=== PATIENT | male | born 1980 | race Caucasian/White ===

== ENCOUNTER 2022-01-23 02:25 | Day surgery (SDC) | payer OTHER ==
[2022-01-23] MEDS ORDERED: SODIUM CHLORIDE 0.9% 1,000 ML IV STA (02:46)
[2022-01-23] MEDS ORDERED: MORPHINE 2 MG/ML CARPUJECT IVP STA ×2 (02:46→06:09)
[2022-01-23] MEDS ORDERED: ONDANSETRON 4 MG/2 ML VIAL IVP STA (02:46)
[2022-01-23 02:59] LABS: BASOPHILS % (AUTO) 0.3 %; EOSINOPHILS # (AUTO) 0.1 10^3/uL (0.0-0.7); EOSINOPHILS % (AUTO) 0.5 %; HCT - HEMATOCRIT 45.2 % (42.0-52.0); HGB - HEMOGLOBIN 15.6 g/dL (14.0-18.0); LYMPHOCYTES # (AUTO) 1.2 10^3/uL (1.5-3.5); LYMPHOCYTES % (AUTO) 11.3 %; MEAN CORPUSCULAR HEMOGLOBIN 28.8 pg (27.0-31.0); MEAN CORPUSCULAR HGB CONC 34.5 g/dL (32.0-36.0); MEAN CORPUSCULAR VOLUME 83.5 fL (80.0-94.0); MEAN PLATELET VOLUME 8.9 fL (7.4-11.4); MONOCYTES # (AUTO) 0.7 10^3/uL (0.0-1.0); NEUTROPHILS % (AUTO) 81.7 %; PLT - PLATELET COUNT 198 10^3/uL (130-450); RED BLOOD COUNT 5.41 10^6/uL (4.70-6.10); RED CELL DISTRIBUTION WIDTH 12.6 % (12.0-15.0)
[2022-01-23] MEDS ORDERED: IOPAMIDOL-300 100 ML VIAL ONE (02:59)
[2022-01-23 03:02] LABS: BILIRUBIN,URINE NEGATIVE (NEGATIVE); CLARITY,URINE CLEAR (CLEAR); GLUCOSE, URINE (UA) NEGATIVE (NEGATIVE); KETONES,URINE (UA) 15 mg/dL (NEGATIVE); LEUKOCYTE ESTERASE, URINE NEGATIVE (NEGATIVE); NITRITE,URINE NEGATIVE (NEGATIVE); OCCULT BLOOD,URINE NEGATIVE (NEGATIVE); PH,URINE 5.5 PH (5.0-7.5); PROTEIN,URINE NEGATIVE (NEGATIVE); UROBILINOGEN,URINE 0.2 (NORMAL) E.U./dL (NORMAL)
[2022-01-23 03:10] LABS: ALBUMIN 4.6 g/dL (3.2-5.5); ALBUMIN/GLOBULIN RATIO 1.3 (1.0-2.2); BILIRUBIN,TOTAL 0.7 mg/dL (0.2-1.0); CALCIUM 9.3 mg/dL (8.5-10.3); CREATININE 1.1 mg/dL (0.6-1.2); TOTAL PROTEIN 8.2 g/dL (6.7-8.2)
[2022-01-23] MEDS ORDERED: IOPAMIDOL-300 100 ML VIAL IVP ONE (03:35)
--- NOTE | 2022-01-23 03:38 | ED Physician Documentation ---
PD HPI ABD PAIN - Stated complaint Stated Complaint: ABD PX - Chief complaint Chief Complaint: Abd Pain - History obtained from History obtained from: Patient - Additional information Additional information: Patient is a 41-year-old male with generalized abdominal pain since 7 or 8 PM. The pain is sharp and throbbing. It has been constant. Nothing makes it better or worse. He has associated nausea. He denies fever, chest pain, difficulty breathing, vomiting, dysuria, hematuria, diarrhea. He denies eating anything abnormal today at that would have triggered his symptoms. He denies any known sick contacts. He denies a previous history of similar symptoms. Denies history of abdominal surgeries. Review of Systems Constitutional: denies: Fever Nose: denies: Congestion Cardiac: denies: Chest pain / pressure, Palpitations Respiratory: denies: Dyspnea, Cough GI: reports: Abdominal Pain, Nausea. denies: Vomiting, Diarrhea : denies: Dysuria, Hematuria Skin: denies: Rash Musculoskeletal: denies: Back pain Neurologic: denies: Headache PD PAST MEDICAL HISTORY - Past Medical History Past Medical History: Yes Musculoskeletal: Gout - Past Surgical History Past Surgical History: Yes Ortho: ACL reconstruction, Other HEENT: Rhinoplasty - Present Medications Home Medications: Ambulatory Orders Medication Instructions Recorded Confirmed Ondansetron Odt [Zofran Odt] 4 mg TL Q6H PRN #10 tablet 01/23/22 allopurinoL [Zyloprim] 200 mg PO DAILY 01/23/22 01/23/22 levoFLOXacin [Levaquin] 500 mg PO QDDINNER #2 tablet 01/23/22 oxyCODONE [Roxicodone] 5 mg PO Q4-6H PRN #7 tablet 01/23/22 - Allergies Allergies/Adverse Reactions: Allergies Allergy/AdvReac Type Severity Reaction Status Date / Time No Known Drug Allergies Allergy Verified 01/23/22 02:35 - Social History Does the pt smoke?: No Smoking Status: Never smoker Does the pt drink ETOH?: Yes Does the pt have substance abuse?: No - Immunizations Immunizations are current?: Yes PD ED PE NORMAL - General General: Alert and oriented X 3, No acute distress, Well developed/nourished - HEENT HEENT: Atraumatic, Moist mucous membranes - Neck Neck: Supple, no meningeal sign - Cardiac Cardiac: RRR, No murmur, Strong equal pulses - Respiratory Respiratory: No respiratory distress, Clear bilaterally - Abdomen Abdomen: Normal bowel sounds, Soft, Non distended, Other (Right lower quadrant tenderness to palpation, no rebound, Mild guarding) - Back Back: No: No CVA TTP - Derm Derm: Normal color, No rash - Extremities Extremities: No deformity, No edema - Neuro Neuro: Alert and oriented X 3, No motor deficit, Normal speech - Psych Psych: Normal mood, Normal affect Results - Vitals Vitals: Vital Signs - 24 hr 01/23/22 01/23/22 01/23/22 02:29 05:00 07:00 Temperature 36.3 C L Heart Rate 68 55 L 59 L Respiratory 18 13 13 Rate Blood Pressure 170/80 H 128/76 115/78 O2 Saturation 100 96 96 01/23/22 01/23/22 01/23/22 09:07 12:07 12:10 Temperature 36.8 C 36.5 C 36.5 C Heart Rate 57 L 67 69 Respiratory 12 12 12 Rate Blood Pressure 136/86 H 136/72 H 127/80 O2 Saturation 97 100 97 01/23/22 01/23/22 01/23/22 12:15 12:20 12:25 Temperature 36.5 C 36.5 C 36.5 C Heart Rate 68 78 75 Respiratory 12 15 15 Rate Blood Pressure 139/73 H 156/88 H 144/88 H O2 Saturation 100 96 99 01/23/22 01/23/22 01/23/22 12:30 12:35 12:40 Temperature 36.5 C 36.5 C 36.5 C Heart Rate 67 66 64 Respiratory 17 15 15 Rate Blood Pressure 148/87 H 153/85 H 149/92 H O2 Saturation 97 97 97 01/23/22 01/23/22 01/23/22 12:45 12:50 12:55 Temperature 36.5 C 36.5 C 36.5 C Heart Rate 63 64 63 Respiratory 15 17 14 Rate Blood Pressure 149/91 H 141/85 H 144/92 H O2 Saturation 97 97 97 01/23/22 01/23/22 01/23/22 13:00 13:02 13:19 Temperature 36.8 C 36.8 C 37.2 C Heart Rate 72 72 64 Respiratory 18 18 14 Rate Blood Pressure 142/88 H 142/88 H 137/72 H O2 Saturation 94 94 94 01/23/22 13:53 Temperature 37.4 C Heart Rate 69 Respiratory 18 Rate Blood Pressure 136/75 H O2 Saturation 98 Oxygen O2 Source Room air - Labs Labs: Laboratory Tests 01/23/22 01/23/22 01/23/22 02:50 02:50 02:50 WBC 11.0 H RBC 5.41 Hgb 15.6 Hct 45.2 MCV 83.5 MCH 28.8 MCHC 34.5 RDW 12.6 Plt Count 198 MPV 8.9 Neut # (Auto) 9.0 H Lymph # (Auto) 1.2 L [place] # (Auto) 0.7 Eos # (Auto) 0.1 Baso # (Auto) 0.0 Absolute Nucleated RBC 0.00 Nucleated RBC % 0.0 Sodium 135 Potassium 4.0 Chloride 101 Carbon Dioxide 24 Anion Gap 10.0 BUN 26 H Creatinine 1.1 Estimated GFR (MDRD) 74 L Glucose 139 H Calcium 9.3 Total Bilirubin 0.7 AST 21 ALT 39 Alkaline Phosphatase 58 Total Protein 8.2 Albumin 4.6 Globulin 3.6 Albumin/Globulin Ratio 1.3 Lipase 32 Urine Color YELLOW Urine Clarity CLEAR Urine pH 5.5 Ur Specific [place] >=1.030 H Urine Protein NEGATIVE Urine Glucose (UA) NEGATIVE Urine Ketones 15 H Urine Occult Blood NEGATIVE Urine Nitrite NEGATIVE Urine Bilirubin NEGATIVE Urine Urobilinogen 0.2 (NORMAL) Ur Leukocyte Esterase NEGATIVE Ur Microscopic Review NOT INDICATED Urine Culture Comments NOT INDICATED SARS-CoV-2 (PCR) 01/23/22 06:05 WBC RBC Hgb Hct MCV MCH MCHC RDW Plt Count MPV Neut # (Auto) Lymph # (Auto) [place] # (Auto) Eos # (Auto) Baso # (Auto) Absolute Nucleated RBC Nucleated RBC % Sodium Potassium Chloride Carbon Dioxide Anion Gap BUN Creatinine Estimated GFR (MDRD) Glucose Calcium Total Bilirubin AST ALT Alkaline Phosphatase Total Protein Albumin Globulin Albumin/Globulin Ratio Lipase Urine Color Urine Clarity Urine pH Ur Specific [place] Urine Protein Urine Glucose (UA) Urine Ketones Urine Occult Blood Urine Nitrite Urine Bilirubin Urine Urobilinogen Ur Leukocyte Esterase Ur Microscopic Review Urine Culture Comments SARS-CoV-2 (PCR) NOT DETECTED PD MEDICAL DECISION MAKING - ED course Complexity details: reviewed results, re-evaluated patient, d/w patient ED course: Patient with vague abdominal pain found to have right lower quadrant tenderness on exam. Vital signs are stable. Labs are reassuring. CT scan with appendicitis. Patient was started on IV antibiotics. General surgery was consulted and will see the patient. Patient was made aware of his diagnosis and need for Hospitalization. [id number] - D/W Dr. Jacobsen. Will see pt. Departure - Departure Disposition: ED Place in Observation Clinical Impression: Acute appendicitis Qualifiers: Acute appendicitis type: with localized peritonitis Appendicitis gangrene pre sence: without gangrene Appendicitis perforation presence: without perforation Appendicitis abscess presence: without abscess Qualified Code(s): K35.30 - Acute appendicitis with localized peritonitis, without perforation or gangrene Condition: Stable Discharge Date/Time: 01/23/22 08:44
[2022-01-23] MEDS ORDERED: HYDROmorphone 1 MG/ML CARPUJECT IVP STA (03:45)
[2022-01-23] MEDS ORDERED: KETOROLAC 30 MG/ML VIAL IVP STA (03:52)
[2022-01-23] MEDS ORDERED: PIPERACILLIN/TAZOBACTAM 3.375 GM in SODIUM CHLORIDE 0.9% MINIBAG 100 ML IV STA (05:59)
[2022-01-23] MEDS ORDERED: ACETAMINOPHEN 1,000 MG/100 ML 100 ML IV PRN (07:54)
[2022-01-23] MEDS ORDERED: SODIUM CHLORIDE FLUSH 0.9% 10 ML SYRINGE IVP PRN (07:54)
--- NOTE | 2022-01-23 07:59 | HISTORY & PHYSICAL EXAMINATION ---
HPI - Admitted From Admitted from: ED - History Obtained From History obtained from: Patient Exam limitations: No limitations - History of Present Illness Pain/Problem Location Description: Generalized abdominal pain Severity at the worst: reports: Moderate Pain Quality: reports: Aching Context-Pain started w/: reports: Rest Timing: reports: Gradual onset Duration: reports: Other (Since 8 PM last evening) Improved with: reports: Nothing Worsened by: reports: Movement, Palpation Associated symptoms: denies: Nausea, Vomiting PMH/PSH - Past Medical History Musculoskeletal: positive: Gout - Past Surgical History Ortho: positive: ACL reconstruction, Other HEENT: positive: Rhinoplasty Social & Family Hx - Living Situation Living Arrangement: At home Living Situation: With spouse/s.o. - Social History Does the pt smoke?: No Smoking Status: Never smoker Does the pt drink ETOH?: Yes Does the pt have substance abuse?: No Meds/Allgy - Home Medications Home Medications: Ambulatory Orders Medication Instructions Recorded Confirmed allopurinoL [Zyloprim] 200 mg PO DAILY 01/23/22 01/23/22 - Allergies Allergies/Adverse Reactions: Allergies Allergy/AdvReac Type Severity Reaction Status Date / Time No Known Drug Allergies Allergy Verified 01/23/22 02:35 Review of Systems - Gastrointestinal Gastrointestinal: reports: Abdominal pain Exam - Vital Signs Reviewed Vital Signs: Yes Vital Signs: Vital Signs x48h Temp Pulse Resp BP Pulse Ox 01/23/22 07:00 59 L 13 115/78 96 01/23/22 05:00 55 L 13 128/76 96 01/23/22 02:29 36.3 C L 68 18 170/80 H 100 - Physical Exam General Appearance: positive: No acute distress, Alert Eyes Bilateral: positive: Normal inspection, PERRL, EOMI ENT: positive: ENT inspection nml Neck: positive: Nml inspection Respiratory: positive: Chest non-tender, No respiratory distress, Breath sounds nml Cardiovascular: positive: Regular rate & rhythm, No murmur Peripheral Pulses: positive: 1+ Abdomen: positive: Tenderness, Guarding. negative: Rebound Back: positive: Nml inspection Skin: positive: Color nml Extremities: positive: Non-tender, Full ROM, Nml appearance Neurologic/Psychiatric: positive: Oriented x3 Results - Lab Results Fish Bones: 01/23/22 02:50 01/23/22 02:50 Other Lab Results: Lab Results x24hrs 01/23/22 01/23/22 01/23/22 Range/Units 06:05 02:50 02:50 WBC (4.8-10.8) x10^3/uL RBC (4.70-6.10) 10^6/uL Hgb (14.0-18.0) g/dL Hct (42.0-52.0) % MCV (80.0-94.0) fL MCH (27.0-31.0) pg MCHC (32.0-36.0) g/dL RDW (12.0-15.0) % Plt Count (130-450) 10^3/uL MPV (7.4-11.4) fL Neut # (Auto) (1.5-6.6) 10^3/uL Lymph # (Auto) (1.5-3.5) 10^3/uL [place] # (Auto) (0.0-1.0) 10^3/uL Eos # (Auto) (0.0-0.7) 10^3/uL Baso # (Auto) (0.0-0.1) 10^3/uL Absolute Nucleated RBC x10^3/uL Nucleated RBC % /100WBC Sodium 135 (135-145) mmol/L Potassium 4.0 (3.5-5.0) mmol/L Chloride 101 (101-111) mmol/L Carbon Dioxide 24 (21-32) mmol/L Anion Gap 10.0 (6-13) BUN 26 H (6-20) mg/dL Creatinine 1.1 (0.6-1.2) mg/dL Estimated GFR (MDRD) 74 L (>89) Glucose 139 H (70-100) mg/dL Calcium 9.3 (8.5-10.3) mg/dL Total Bilirubin 0.7 (0.2-1.0) mg/dL AST 21 (10-42) IU/L ALT 39 (10-60) IU/L Alkaline Phosphatase 58 (42-121) IU/L Total Protein 8.2 (6.7-8.2) g/dL Albumin 4.6 (3.2-5.5) g/dL Globulin 3.6 (2.1-4.2) g/dL Albumin/Globulin Ratio 1.3 (1.0-2.2) Lipase 32 (22-51) U/L Urine Color YELLOW Urine Clarity CLEAR (CLEAR) Urine pH 5.5 (5.0-7.5) PH Ur Specific [place] >=1.030 H (1.002-1.030) Urine Protein NEGATIVE (NEGATIVE) mg/dL Urine Glucose (UA) NEGATIVE (NEGATIVE) mg/dL Urine Ketones 15 H (NEGATIVE) mg/dL Urine Occult Blood NEGATIVE (NEGATIVE) Urine Nitrite NEGATIVE (NEGATIVE) Urine Bilirubin NEGATIVE (NEGATIVE) Urine Urobilinogen 0.2 (NORMAL) (NORMAL) E.U./dL Ur Leukocyte Esterase NEGATIVE (NEGATIVE) Ur Microscopic Review NOT INDICATED Urine Culture Comments NOT INDICATED SARS-CoV-2 (PCR) NOT DETECTED 01/23/22 Range/Units 02:50 WBC 11.0 H (4.8-10.8) x10^3/uL RBC 5.41 (4.70-6.10) 10^6/uL Hgb 15.6 (14.0-18.0) g/dL Hct 45.2 (42.0-52.0) % MCV 83.5 (80.0-94.0) fL MCH 28.8 (27.0-31.0) pg MCHC 34.5 (32.0-36.0) g/dL RDW 12.6 (12.0-15.0) % Plt Count 198 (130-450) 10^3/uL MPV 8.9 (7.4-11.4) fL Neut # (Auto) 9.0 H (1.5-6.6) 10^3/uL Lymph # (Auto) 1.2 L (1.5-3.5) 10^3/uL [place] # (Auto) 0.7 (0.0-1.0) 10^3/uL Eos # (Auto) 0.1 (0.0-0.7) 10^3/uL Baso # (Auto) 0.0 (0.0-0.1) 10^3/uL Absolute Nucleated RBC 0.00 x10^3/uL Nucleated RBC % 0.0 /100WBC Sodium (135-145) mmol/L Potassium (3.5-5.0) mmol/L Chloride (101-111) mmol/L Carbon Dioxide (21-32) mmol/L Anion Gap (6-13) BUN (6-20) mg/dL Creatinine (0.6-1.2) mg/dL Estimated GFR (MDRD) (>89) Glucose (70-100) mg/dL Calcium (8.5-10.3) mg/dL Total Bilirubin (0.2-1.0) mg/dL AST (10-42) IU/L ALT (10-60) IU/L Alkaline Phosphatase (42-121) IU/L Total Protein (6.7-8.2) g/dL Albumin (3.2-5.5) g/dL Globulin (2.1-4.2) g/dL Albumin/Globulin Ratio (1.0-2.2) Lipase (22-51) U/L Urine Color Urine Clarity (CLEAR) Urine pH (5.0-7.5) PH Ur Specific [place] (1.002-1.030) Urine Protein (NEGATIVE) mg/dL Urine Glucose (UA) (NEGATIVE) mg/dL Urine Ketones (NEGATIVE) mg/dL Urine Occult Blood (NEGATIVE) Urine Nitrite (NEGATIVE) Urine Bilirubin (NEGATIVE) Urine Urobilinogen (NORMAL) E.U./dL Ur Leukocyte Esterase (NEGATIVE) Ur Microscopic Review Urine Culture Comments SARS-CoV-2 (PCR) - Diagnostic Imaging Results Diagnostic Imaging Results Comments: Acute retrocecal appendicitis without perforation or abscess on CT Impression/Plan - Problem List Problem List: Acute appendicitis in the setting of a healthy and active 41-year-old gentleman. 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 We have discussed the risk, benefits, and alternatives to laparosc opic appendectomy including antibiotics and observation. After careful consideration of the risks, he is elected to consent to the procedure.
[2022-01-23] MEDS ORDERED: PIPERACILLIN/TAZOBACTAM 3.375 GM in SODIUM CHLORIDE 0.9% MINIBAG 100 ML IV SCH (08:00)
[2022-01-23] MEDS ORDERED: LACTATED RINGERS 1,000 ML IV SCH ×2 (08:00→11:00)
--- NOTE | 2022-01-23 08:47 | CT Report ---
PROCEDURE: Abdomen/Pelvis W INDICATIONS: RLQ pain CONTRAST: IV CONTRAST: Isovue 300 ml: 100 PO CONTRAST: *NO PO CONTRAST TECHNIQUE: After the administration of IV contrast, 5 mm thick sections acquired from the diaphragms to the symp hysis. 5 mm thick coronal and sagittal reformats were acquired. For radiation dose reduction, the f ollowing was used: automated exposure control, adjustment of mA and/or kV according to patient size. COMPARISON: None. FINDINGS: Image quality: Excellent. ABDOMEN: Lung bases: Lung bases are clear. Heart size is normal. Solid organs: Liver and spleen are normal in size and enhancement. Gallbladder is decompressed [place] iary system is non dilated. Pancreas enhances normally. No adrenal nodules. Kidneys demonstrate no rmal size and enhancement, without hydronephrosis. Peritoneum and bowel: The appendix is retrocecal and directed cranially. Proximal appendix is normal . The mid appendix contains an appendicolith in the distal appendix is obstructed, enlarged, and demo nstrates mild periappendiceal inflammation. No adjacent fluid or extraluminal gas. Bowel loops otherw ise demonstrate normal wall thickness and caliber. No free fluid or air. Nodes and vessels: No retroperitoneal or mesenteric adenopathy by size criteria. Aorta and inferior vena cava are normal in size. Miscellaneous: No ventral hernias. PELVIS: Genitourinary: Bladder wall thickness is normal. Miscellaneous: No inguinal hernias or adenopathy. Bones: No suspicious bony lesions. No vertebral body compression fractures. Bilateral L5 pars defe cts resulting in grade 1 anterolisthesis L5 on S1. IMPRESSION: 1. Acute, uncomplicated appendicitis. 2. Final interpretation concordant with preliminary report . Reviewed by: Oanh Perez MD on 01/23/2022 8:46 AM PDT Approved by: Oanh Perez MD on 01/23/2022 8:46 AM PDT Station ID: [id number]
[2022-01-23] MEDS: HYDROmorphone 0.5 MG/0.5 ML SYRINGE IVP PRN ×2 (08:58→12:32)
[2022-01-23] MEDS ORDERED: LACTATED RINGERS 1,000 ML IV ONE (08:58)
[2022-01-23] MEDS ORDERED: SODIUM CHLORIDE FLUSH 0.9% 10 ML SYRINGE IVP SCH (09:00)
[2022-01-23] MEDS ORDERED: BUPIVACAINE 0.25% PF 10 ML VIAL ONE (10:54)
[2022-01-23] MEDS ORDERED: LIDOCAINE 2%-EPI 1:100000 20 ML MDV ONE (10:54)
[2022-01-23] MEDS ORDERED: fentaNYL 100 MCG/2 ML VIAL ONE ×3 (10:56→12:57)
[2022-01-23] MEDS ORDERED: LIDOCAINE-MPF 2% 5 ML VIAL ONE (10:56)
[2022-01-23] MEDS ORDERED: PROPOFOL 200 MG/20 ML VIAL IVP ONE (10:56)
[2022-01-23] MEDS ORDERED: ROCURONIUM 50 MG/5 ML VIAL ONE ×2 (10:56→11:46)
[2022-01-23] MEDS ORDERED: MIDAZOLAM 2 MG/2 ML VIAL ONE (10:56)
--- NOTE | 2022-01-23 10:58 | ANESTHESIA ---
Pre-Anesthesia VS, & Labs - Diagnosis acute appendicitis - Procedure laparoscopic appendectomy Vital Signs: Temp Pulse Resp BP Pulse Ox 36.8 C 57 L 12 136/86 H 97 01/23/22 09:07 01/23/22 09:07 01/23/22 09:07 01/23/22 09:07 01/23/22 09:07 Height: 6 ft 3 in Weight (kg): 101.605 kg Body Mass Index: 28.0 BMI Classification: Overweight - NPO >8 hours - Lab Results Current Lab Results: Laboratory Tests 01/23/22 02:50: Sodium 135, Potassium 4.0, Chloride 101, Carbon Dioxide 24, Anion Gap 10.0, BUN 26 H, Creatinine 1.1, Estimated GFR (MDRD) 74 L, Glucose 139 H, Calcium 9.3, Total Bilirubin 0.7, AST 21, ALT 39, Alkaline Phosphatase 58, Total Protein 8.2, Albumin 4.6, Globulin 3.6, Albumin/Globulin Ratio 1.3, Lipase 32 01/23/22 02:50: WBC 11.0 H, RBC 5.41, Hgb 15.6, Hct 45.2, MCV 83.5, MCH 28.8, MCHC 34.5, RDW 12.6, Plt Count 198, MPV 8.9, Neut # (Auto) 9.0 H, Lymph # (Auto) 1.2 L, [place] # (Auto) 0.7, Eos # (Auto) 0.1, Baso # (Auto) 0.0, Absolute Nucleated RBC 0.00, Nucleated RBC % 0.0 Fish Bones: 01/23/22 02:50 01/23/22 02:50 Home Medications and Allergies Home Medications: Ambulatory Orders allopurinoL [Zyloprim] 200 mg PO DAILY 01/23/22 Active Medications Hydromorphone HCl (Hydromorphone 0.5 Mg/0.5 Ml Syringe) 0.5 mg IVP Q2H PRN PRN Reason: PAIN Last Admin: 01/23/22 08:58 Dose: 0.5 mg Lactated Ringer's (Lr) 1,000 mls @ 100 mls/hr IV .Q10H LEANA Piperacillin Sod/Tazobactam (Sod 3.375 gm/ Sodium Chloride) 100 mls @ 200 mls/hr IV Q6H LEANA Acetaminophen (Ofirmev) 100 mls @ 400 mls/hr IV Q6HR PRN PRN Reason: PAIN Sodium Chloride (Sodium Chloride Flush 0.9% 10 Ml Syringe) 10 ml IVP 0100,0900,1700 LEANA Sodium Chloride (Sodium Chloride Flush 0.9% 10 Ml Syringe) 10 ml IVP PRN PRN PRN Reason: NEEDED PER PROVIDER ORDERS allopurinoL [Zyloprim] 200 mg PO DAILY 01/23/22 Allergies/Adverse Reactions: Allergies Allergy/AdvReac Type Severity Reaction Status Date / Time No Known Drug Allergies Allergy Verified 01/23/22 02:35 Anes History & Medical History - Anesthetic History Anesthesia Complications: reports: No previous complications Family history of Anesthesia Complications: Denies Family history of Malignant Hyperthermia: Denies - Medical History Cardiovascular: reports: None Pulmonary: reports: None Gastrointestinal: reports: None Musculoskeletal: reports: Gout Smoking Status: Never smoker Psychosocial: reports: Alcohol, Cannabis History of Cancer?: No - Surgical History Eyes Ears Nose Throat (EENT): reports: Rhinoplasty Orthopedic: reports: ACL reconstruction, Other Exam General: Alert, Oriented x3, Cooperative Dental: WNL Mouth Openin Fingerbreadth Neck Mobility: Normal Mallampati classification: II Thyromental Distance: 4-6 cm Respiratory: Lungs clear, Normal breath sounds, No respiratory distress Cardiovascular: Regular rate Neurological: Normal speech Mental/Cognitive Status: Alert/Oriented X3, Normal for patient Cognitive Status: Within normal limits Plan Anesthesia Type: General Consent for Procedure(s) Verified and Reviewed: Yes Code Status: Attempt Resuscitation ASA classification: 2-Mild systemic disease Is this case an emergency?: No
[2022-01-23] MEDS ORDERED: ONDANSETRON 4 MG/2 ML VIAL IVP PRN ×2 (10:59→12:04)
[2022-01-23] MEDS ORDERED: NALOXONE 0.4 MG/ML VIAL IVP PRN (10:59)
[2022-01-23] MEDS ORDERED: MORPHINE 2 MG/ML CARPUJECT IVP PRN (10:59)
[2022-01-23] MEDS ORDERED: ATROPINE ABBOJECT 1 MG/10 ML SYRINGE IVP PRN (10:59)
[2022-01-23] MEDS ORDERED: fentaNYL 100 MCG/2 ML VIAL IVP PRN (10:59)
[2022-01-23] MEDS ORDERED: METOCLOPRAMIDE 10 MG/2 ML VIAL IVP PRN (10:59)
[2022-01-23] MEDS ORDERED: ePHEDrine 50 MG/ML VIAL IVP PRN (10:59)
[2022-01-23] MEDS ORDERED: HYDROmorphone 0.5 MG/0.5 ML SYRINGE IVP PRN (10:59)
[2022-01-23] MEDS ORDERED: DEXAMETHASONE 4 MG/ML VIAL ONE (11:31)
[2022-01-23] MEDS ORDERED: SUGAMMADEX 200 MG/2 ML VIAL IVP ONE (11:52)
[2022-01-23] MEDS ORDERED: BUPIVACAINE 0.5% PF 10 ML VIAL IM ONE (12:00)
[2022-01-23] MEDS ORDERED: LIDOCAINE 2%-EPI 1:100000 20 ML MDV SUBQ ONE (12:00)
[2022-01-23] MEDS ORDERED: IBUPROFEN 600 MG TABLET PO PRN (12:04)
[2022-01-23] MEDS ORDERED: ACETAMINOPHEN 325 MG TABLET PO PRN (12:04)
[2022-01-23] MEDS ORDERED: oxyCODONE 5 MG TABLET PO PRN (12:04)
--- NOTE | 2022-01-23 12:04 | OPERATIVE REPORT ---
Operative Report - General Procedure Date: 01/23/22 Planned Procedure: Laparoscopic appendectomy Pre-Op Diagnosis: Acute nonperforated appendicitis Procedure Performed: Laparoscopic appendectomy Post Op Diagnosis: Acute, nonperforated appendicitis - Procedure Note Primary Surgeon: Ann-Marie Anesthesia Provider: BEN Cueto Pathology: Appendix to pathology in formalin Estimated Blood Loss (mL): 20 Findings: Long retrocecal appendix with inflammation of the distal portion. Complications: None apparent - Other Other Information/Narrative: After obtaining informed consent, the patient is brought to the operating room and placed in the supine position on the operating table. Following successful induction of general endotracheal anesthesia, appropriate padding of all bony prominences, and placement of appropriate monitors, the abdomen was prepped and draped in the standard surgical fashion. A timeout was held per scope protocol. All elements of the surgical safety checklist were followed before, during, and after the procedure. Following infiltration with local anesthetic to create a field block, an incision was created inferior to the umbilicus and carried down through the skin and subcutaneous tissue to reveal the fascia below. 2-0 Vicryl retention sutures were placed on either side of the midline and the abdomen was entered under direct vision using a 15 blade scalpel. A 10 mm blunt Sin balloon trocar was placed in the abdominal cavity and it was insufflated to 15 mmHg pressure. The patient was placed in Trendelenburg position with the left side rotated toward the floor. The camera was placed in the abdominal cavity and we immediately visualized the cecum in the right lower quadrant. It was rotated medially to reveal a somewhat dilated and acutely inflammed appendix. There was no evidence of perforation or abscess. The appendix was grasped and elevated revealing its attachment to the cecum. A window was created in the mesoappendix at this location. A laparoscopic stapling device was used to ligate the appendix and liberated from its attachment to the cecum. An additional load of the device were used to divide its mesentery.The appendix was placed in an Endo Catch bag and removed via the umbilical port with a camera in the epigastric position. The camera was replaced in the operative site examined. It was irrigated with warm saline solution and aspirated free of all fluid and particulate matter. The table was flattened and the abdomen evaluated once again. The trochars were removed under direct vision and abdomen was desufflated. The umbilical incision was closed with interrupted Vicryl suture and Monocryl stitches were placed in the skin. All sponge, needles, and instrument counts were correct at the conclusion of the case. The patient was allowed to wake from anesthesia without difficulty and taken to the postanesthesia care unit in good condition.
[2022-01-23] MEDS ORDERED: LACTATED RINGERS 700 ML IV ONE (12:17)
--- NOTE | 2022-01-23 13:32 | ANESTHESIA POST OP EVALUATION ---
Anesthesia Post Eval - Post Anesthesia Eval Vitals: Last Vital Signs Temp 37.2 C 01/23/22 13:19 Pulse 64 01/23/22 13:19 Resp 14 01/23/22 13:19 BP 137/72 H 01/23/22 13:19 Pulse Ox 94 01/23/22 13:19 CV Function Including HR & BP: Stable Pain Control: Satisfactory Nausea & Vomiting: Negative Mental Status: Baseline Respiratory Status: Airway Patent Hydration Status: Satisfactory Anesthesia Complications: None
[2022-01-23 13:54] VITALS: BP 136/75
== END 2022-01-23 08:33 | disposition home or self-care (01) ==
LOC: ED 02:25 → SDS 08:32
PROVIDERS: ATTEND Surgery
PROC: 0DTJ4ZZ Resection of Appendix, Percutaneous Endoscopic Approach (ICD-10-PCS; principal; 2022-01-23 14:30)
DX: K35.30 Acute appendicitis with localized peritonitis, without perforation or gangrene (principal); Z20.822 Contact with and (suspected) exposure to COVID-19
CPT/HCPCS: 36415; 44970; 74177; 80053; 81003; 83690; 85025; 87635; 96365; 96375; 96376; 99284; 99285; A9270; J1170; J7120; Q9967; 81001; 87086

== ENCOUNTER 2022-01-28 08:36 | Emergency (ER) | payer OTHER ==
[2022-01-28] MEDS ORDERED: PIPERACILLIN/TAZOBACTAM 3.375 GM in SODIUM CHLORIDE 0.9% MINIBAG 100 ML IV STA (09:08)
--- NOTE | 2022-01-28 09:08 | ED Physician Documentation ---
History of Present Illness - Stated complaint Stated Complaint: ABD PX - Chief complaint Chief Complaint: Abd Pain - History obtained from History obtained from: Patient - History of Present Illness Timing: Today - Additonal information Additional information: 41-year-old Uriel Clark had his appendix taken out 5 days ago. Over the past 2 days he has developed redness pain and swelling surrounding the umbilical incision area. He has been asked by Dr. Dowell come to the emergency department for evaluation. Review of Systems Constitutional: reports: Fever, Chills Eyes: denies: Decreased vision Ears: denies: Ear pain Nose: denies: Rhinorrhea / runny nose, Congestion Throat: denies: Sore throat Cardiac: denies: Chest pain / pressure, Palpitations Respiratory: denies: Dyspnea, Cough GI: reports: Abdominal Pain. denies: Vomiting, Diarrhea : denies: Dysuria, Frequency Skin: reports: Other (redness to skin on abdomen) Musculoskeletal: denies: Neck pain, Back pain, Extremity pain Neurologic: denies: Generalized weakness, Focal weakness, Numbness PD PAST MEDICAL HISTORY - Past Medical History Cardiovascular: None Respiratory: None GI: None Musculoskeletal: Gout - Past Surgical History Past Surgical History: Yes Ortho: ACL reconstruction, Other HEENT: Rhinoplasty - Present Medications Home Medications: Ambulatory Orders Medication Instructions Recorded Confirmed Ondansetron Odt [Zofran Odt] 4 mg TL Q6H PRN #10 tablet 01/23/22 01/28/22 allopurinoL [Zyloprim] 200 mg PO DAILY 01/23/22 01/28/22 levoFLOXacin [Levaquin] 500 mg PO QD 7 Days #14 tablet 01/28/22 oxyCODONE [Roxicodone] 5 mg PO Q4-6H PRN #8 tablet 01/28/22 - Allergies Allergies/Adverse Reactions: Allergies Allergy/AdvReac Type Severity Reaction Status Date / Time No Known Drug Allergies Allergy Verified 01/28/22 08:48 - Social History Does the pt smoke?: No Smoking Status: Never smoker Does the pt drink ETOH?: Yes Does the pt have substance abuse?: No - Immunizations Immunizations are current?: Yes PD ED PE NORMAL - Vitals Vital signs reviewed: Yes - General General: Alert and oriented X 3, Well developed/nourished, Other (41 y/o male lying still groans in pain with movement) - HEENT HEENT: Atraumatic, PERRL, EOMI - Neck Neck: Supple, no meningeal sign, No bony TTP - Cardiac Cardiac: RRR, No murmur - Respiratory Respiratory: No respiratory distress, Clear bilaterally - Abdomen Abdomen: Other (central area of erythema is 20cm X 17cm with center over the umbilical surgical site. Area is tender to even light palpation. ) - Back Back: No CVA TTP, No spinal TTP - Derm Derm: Warm and dry, No rash, Other (erythema over the incision site. 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 helper 2-12 intact, No motor deficit, No sensory deficit, Normal speech Eye Opening: Spontaneous Motor: Obeys Commands Verbal: Oriented GCS Score: 15 - Psych Psych: Normal mood, Normal affect Results - Vitals Vitals: Vital Signs - 24 hr 01/28/22 01/28/22 01/28/22 08:49 09:08 09:10 Temperature 38.0 C H Heart Rate 89 81 74 Respiratory 20 20 22 Rate Blood Pressure 156/90 H 173/97 H 173/97 H O2 Saturation 97 96 96 01/28/22 01/28/22 01/28/22 09:38 10:08 10:09 Temperature Heart Rate 73 64 66 Respiratory 20 19 20 Rate Blood Pressure 148/68 H 138/82 H 138/82 H O2 Saturation 94 98 93 01/28/22 11:49 Temperature 37.1 C Heart Rate 61 Respiratory 20 Rate Blood Pressure 130/81 H O2 Saturation 97 Oxygen O2 Source Room air - Labs Labs: Laboratory Tests 01/28/22 01/28/22 01/28/22 09:05 09:05 09:05 WBC 8.2 RBC 4.78 Hgb 13.7 L Hct 39.6 L MCV 82.8 MCH 28.7 MCHC 34.6 RDW 12.1 Plt Count 206 MPV 8.5 Neut # (Auto) 6.6 Lymph # (Auto) 0.9 L [place] # (Auto) 0.7 Eos # (Auto) 0.1 Baso # (Auto) 0.0 Absolute Nucleated RBC 0.00 Nucleated RBC % 0.0 Sodium 137 Potassium 4.0 Chloride 101 Carbon Dioxide 25 Anion Gap 11.0 BUN 14 Creatinine 1.0 Estimated GFR (MDRD) 82 L Glucose 114 H Lactic Acid 1.1 Calcium 9.2 Total Bilirubin 0.7 AST 44 H ALT 89 H Alkaline Phosphatase 68 Total Protein 7.9 Albumin 3.6 Globulin 4.3 H Albumin/Globulin Ratio 0.8 L Urine Color Urine Clarity Urine pH Ur Specific [place] Urine Protein Urine Glucose (UA) Urine Ketones Urine Occult Blood Urine Nitrite Urine Bilirubin Urine Urobilinogen Ur Leukocyte Esterase Urine RBC Urine WBC Ur Squamous Epith Cells Urine Bacteria Urine Culture Comments 01/28/22 10:20 WBC RBC Hgb Hct MCV MCH MCHC RDW Plt Count MPV Neut # (Auto) Lymph # (Auto) [place] # (Auto) Eos # (Auto) Baso # (Auto) Absolute Nucleated RBC Nucleated RBC % Sodium Potassium Chloride Carbon Dioxide Anion Gap BUN Creatinine Estimated GFR (MDRD) Glucose Lactic Acid Calcium Total Bilirubin AST ALT Alkaline Phosphatase Total Protein Albumin Globulin Albumin/Globulin Ratio Urine Color YELLOW Urine Clarity CLEAR Urine pH 7.0 Ur Specific [place] 1.010 Urine Protein NEGATIVE Urine Glucose (UA) NEGATIVE Urine Ketones NEGATIVE Urine Occult Blood NEGATIVE Urine Nitrite NEGATIVE Urine Bilirubin NEGATIVE Urine Urobilinogen 0.2 (NORMAL) Ur Leukocyte Esterase NEGATIVE Urine RBC None Seen Urine WBC 0-3 Ur Squamous Epith Cells NONE SEEN Urine Bacteria None Seen Urine Culture Comments NOT INDICATED PD MEDICAL DECISION MAKING - ED course Complexity details: reviewed results, re-evaluated patient, considered differential, d/w patient ED course: 41-year-old male has come to the emergency department this morning 5 days after an appendectomy with an infected surgical incision site. It looks like a localized abscess and Dr. Dowell is consulted in the case she graciously comes to the emergency department and does incision and drainage she recommends Levaquin and oxycodone for pain. The patient was initially flagged as septic with fever and infection. Blood cultures are pending and the patient was given a dose of zosyn Departure - Departure Disposition: 01 Home, Self Care Clinical Impression: Abdominal wall abscess at site of surgical wound Condition: Stable Instructions: ED Abscess IandD Follow-Up: JAKY BARBA ARNP [Primary Care Provider] - Leo Jacobsen MD [Provider Admit Priv/Credential] - Prescriptions: levoFLOXacin [Levaquin] 500 mg PO QD 7 Days #14 tablet oxyCODONE [Roxicodone] 5 mg PO Q4-6H PRN #8 tablet PRN Reason: Pain Comments: Stacy, today it looks like you have an abscess to the surgical incision site near the umbilicus and this has been opened and drained. This will usually resolve the infection. A prescription for Levaquin and antibiotic has been E scribed to [facility] in [place]. As well as some pain medication some oxycodone. Follow- up with Dr. Jacobsen as planned. Discharge Date/Time: 01/28/22 11:52
[2022-01-28] MEDS ORDERED: ONDANSETRON 4 MG/2 ML VIAL IVP STA (09:12)
[2022-01-28] MEDS ORDERED: HYDROmorphone 1 MG/ML CARPUJECT IVP STA ×2 (09:12→10:34)
[2022-01-28] MEDS ORDERED: SODIUM CHLORIDE 0.9% 1,000 ML IV STA (09:12)
[2022-01-28] MEDS ORDERED: KETOROLAC 30 MG/ML VIAL IVP STA (09:12)
[2022-01-28 09:16] LABS: BASOPHILS % (AUTO) 0.2 %; EOSINOPHILS # (AUTO) 0.1 10^3/uL (0.0-0.7); HCT - HEMATOCRIT 39.6 % (42.0-52.0); HGB - HEMOGLOBIN 13.7 g/dL (14.0-18.0); LYMPHOCYTES # (AUTO) 0.9 10^3/uL (1.5-3.5); LYMPHOCYTES % (AUTO) 10.7 %; MEAN CORPUSCULAR HEMOGLOBIN 28.7 pg (27.0-31.0); MEAN CORPUSCULAR HGB CONC 34.6 g/dL (32.0-36.0); MEAN CORPUSCULAR VOLUME 82.8 fL (80.0-94.0); MEAN PLATELET VOLUME 8.5 fL (7.4-11.4); MONOCYTES # (AUTO) 0.7 10^3/uL (0.0-1.0); MONOCYTES % (AUTO) 8.3 %; NEUTROPHILS # (AUTO) 6.6 10^3/uL (1.5-6.6); NEUTROPHILS % (AUTO) 79.6 %; PLT - PLATELET COUNT 206 10^3/uL (130-450); RED BLOOD COUNT 4.78 10^6/uL (4.70-6.10); RED CELL DISTRIBUTION WIDTH 12.1 % (12.0-15.0); WHITE BLOOD COUNT 8.2 x10^3/uL (4.8-10.8)
[2022-01-28 09:26] LABS: ALBUMIN 3.6 g/dL (3.2-5.5); ALBUMIN/GLOBULIN RATIO 0.8 (1.0-2.2); BILIRUBIN,TOTAL 0.7 mg/dL (0.2-1.0); CALCIUM 9.2 mg/dL (8.5-10.3); TOTAL PROTEIN 7.9 g/dL (6.7-8.2)
[2022-01-28 10:25] LABS: BILIRUBIN,URINE NEGATIVE (NEGATIVE); GLUCOSE, URINE (UA) NEGATIVE (NEGATIVE); KETONES,URINE (UA) NEGATIVE (NEGATIVE); LEUKOCYTE ESTERASE, URINE NEGATIVE (NEGATIVE); NITRITE,URINE NEGATIVE (NEGATIVE); OCCULT BLOOD,URINE NEGATIVE (NEGATIVE); PROTEIN,URINE NEGATIVE (NEGATIVE); UROBILINOGEN,URINE 0.2 (NORMAL) E.U./dL (NORMAL)
[2022-01-28] MEDS ORDERED: lidocaine 1% 20 ML MDV SUBQ ONE (10:28)
[2022-01-28 10:31] LABS: BACTERIA,URINE None Seen /HPF (None Seen); CLARITY,URINE CLEAR (CLEAR); RBC,URINE None Seen /HPF (0-5); SQUAMOUS EPITHELIAL CELL,UR NONE SEEN (<= Few); WBC,URINE 0-3 /HPF (0-3)
[2022-01-28 11:50] VITALS: BP 130/81
== END 2022-01-28 11:52 | disposition home or self-care (01) ==
LOC: ED 08:36
DX: T81.41XA Infection following a procedure, superficial incisional surgical site, initial encounter (principal)
CPT/HCPCS: 36415; 80053; 81001; 83605; 85025; 87040; 96365; 96375; 96376; 99284; J1170; 87086

== ENCOUNTER 2022-02-08 05:56 | Emergency (ER) | payer OTHER ==
[2022-02-08 06:08] VITALS: BP 136/92
--- NOTE | 2022-02-08 06:10 | ED Physician Documentation ---
PD HPI LOWER EXT INJURY - Stated complaint Stated Complaint: RT KNEE PX - Chief complaint Chief Complaint: Ext Problem - Additional information Additional information: Patient is a 41-year-old male with past medical significant for gouty arthritis presenting to the emergency department with right-sided knee pain. Reports knee pain ongoing since yesterday evening. Reports it is similar to pain he is associated with gout flares in the past. Reports takes allopurinol at home. States recently had steak tacos and asparagus I did not think about the implications for his uric acid intake. Denies trauma to the knee or fever. Does report a distant history of puncture wound to the knee in childhood as well as ACL surgery on his left knee. Review of Systems Ten Systems: 10 systems reviewed and negative Constitutional: denies: Fever Eyes: denies: Loss of vision Ears: denies: Loss of hearing Nose: denies: Rhinorrhea / runny nose Throat: denies: Dental pain / toothache Cardiac: denies: Chest pain / pressure Respiratory: denies: Dyspnea GI: denies: Abdominal Pain : denies: Dysuria PD PAST MEDICAL HISTORY - Past Medical History Cardiovascular: None Respiratory: None GI: None Musculoskeletal: Gout - Past Surgical History Past Surgical History: Yes Ortho: ACL reconstruction, Other HEENT: Rhinoplasty - Present Medications Home Medications: Ambulatory Orders Medication Instructions Recorded Confirmed allopurinoL [Zyloprim] 200 mg PO DAILY 01/23/22 01/28/22 Colchicine 0.6 mg PO BID 3 Days #6 tablet 02/08/22 Indomethacin [Indocin] 50 mg PO TID #60 cap 02/08/22 Pantoprazole Sodium [Protonix] 20 mg PO DAILY #30 tab 02/08/22 oxyCODONE [Roxicodone] 5 mg PO ONCE #10 tablet 02/08/22 predniSONE [Prednisone 21-TAB dose 10 mg PO DAILY #21 tab 02/08/22 pack] - Allergies Allergies/Adverse Reactions: Allergies Allergy/AdvReac Type Severity Reaction Status Date / Time No Known Drug Allergies Allergy Verified 02/08/22 06:08 - Social History Does the pt smoke?: No Smoking Status: Never smoker Does the pt drink ETOH?: Yes Does the pt have substance abuse?: No - Immunizations Immunizations are current?: Yes PD ED PE NORMAL - General General: Alert and oriented X 3 - HEENT HEENT: Atraumatic - Neck Neck: Supple, no meningeal sign - Cardiac Cardiac: RRR - Respiratory Respiratory: No respiratory distress - Male Male : Deferred - Rectal Rectal: Deferred - Extremities Extremities: Other (There is a modest amount of soft tissue swelling to the right knee in comparison to left. Popliteal pulses palpable. There is no e rythema or rubor appreciated) Results - Vitals Vitals: Vital Signs - 24 hr 02/08/22 06:06 Temperature 36.8 C Heart Rate 86 Respiratory 19 Rate Blood Pressure 136/92 H O2 Saturation 100 Oxygen O2 Source Room air PD MEDICAL DECISION MAKING - ED course Complexity details: d/w patient ED course: Patient is 41-year-old male presenting to the emergency department with right knee pain. Known history of gouty arthritis and reports the pain is similar to gout flares he has had in the same knee in the past. Reports that he has been compliant with his home allopurinol however did recently eat a large meal consisting of steak, asparagus and other known sources of uric acid. Denied any fever, trauma to the knee. Was afebrile, hemodynamically stable here in the emergency department. Head tenderness and some soft tissue swelling without erythema or rubor. Was otherwise generally nontoxic. His overall presentation is consistent with recurrent gouty arthritis to the right knee and he was given prednisone, colchicine, Motrin and1 5 mg oxycodone here in the emergency department for pain control. At this time I will discharge with medications to continue helping him with his acute gouty flare. Encourage careful follow-up with primary care. Otherwise clear return precautions and follow-up instructions given prior to discharge. Departure - Departure Disposition: 01 Home, Self Care Clinical Impression: Gout attack Instructions: Gout Attack Tx, ED Diet Gout Prescriptions: Colchicine 0.6 mg PO BID 3 Days #6 tablet Indomethacin [Indocin] 50 mg PO TID #60 cap predniSONE [Prednisone 21-TAB dose pack] 10 mg PO DAILY #21 tab Pantoprazole Sodium [Protonix] 20 mg PO DAILY #30 tab oxyCODONE [Roxicodone] 5 mg PO ONCE #10 tablet Comments: Thank you for allowing us to care for you today at [facility]. Your Prescriptions were sent electronically to [facility] in [place]. As we discussed I have sent a prescription for prednisone, indomethacin, a 3-day course of colchicine, as well as a small number of oxycodone to your preferred pharmacy. Please fill these prescriptions and take as directed. I have also provided you with an antiacid medication that can help to get some of the GI effects colchicine and nonsteroidal anti-inflammatory medication such as indomethacin are known to cause. Please drink plenty of fluids and get plenty of rest. Please follow-up with your primary care doctor soon as possible. If anytime you develop any new or worsening symptoms including worsening pain, fever, swelling redness or heat associated with your knee please return to the emergency department for reevaluation.
[2022-02-08] MEDS ORDERED: INDOMETHACIN 25 MG CAPSULE PO STA (06:20)
[2022-02-08] MEDS ORDERED: oxyCODONE 5 MG TABLET PO STA (06:21)
[2022-02-08] MEDS ORDERED: COLCHICINE 0.6 MG TABLET PO STA (06:21)
[2022-02-08] MEDS ORDERED: predniSONE 20 MG TABLET PO STA (06:23)
[2022-02-08] MEDS ORDERED: IBUPROFEN 800 MG TABLET PO STA (06:26)
== END 2022-02-08 07:40 | disposition home or self-care (01) ==
LOC: ED 05:56
DX: M10.9 Gout, unspecified (principal)
CPT/HCPCS: 99283; 99284; A9270; J7512

== ENCOUNTER 2022-11-07 09:44 | Outpatient (CLI) | payer OTHER ==
[2022-11-07 10:27] VITALS: BP 128/82
--- NOTE | 2022-11-07 10:27 | SLEEP CARE CONSULTATION ---
Information from patient questionnaire entered by Kayden Juarez. I have reviewed and concur with the information entered by Kayden Juarez. This document represents the service I personally performed and the decisions made by me, Елена Philippe ARNP. History of Present Illness Service Date and Time: 11/07/2022 0944 Reason for Visit: New patient Chief Complaint: reports: Snoring, Frequent awakenings at night, Other (RESTLESS LEGS) Date of Onset: COUPLE YRS Usual bedtime: 930PM Time it takes to fall asleep: 15-20MIN Snores at night: Yes Observed to quit breathing while asleep: No Sleeps alone due to snoring: Yes Number of times waking at night: 2-3 Reasons for waking at night: reports: Bathroom, Other (UNKNOWN). denies: Choking, Snoring, Gasping for air Toss, Turn, or Twitch while sleeping: Yes Recalls having dreams: Yes Usually gets out of bed at: 630AM Feels refreshed in the morning: Yes Morning headache: No Sleepy or fatigued during the day: No Ever fallen asleep while driving: No Takes day naps: No Dreams during day naps: Yes Prior sleep studies: No Additional HPI information: I had the pleasure of seeing JACINTO POWELL today regarding the possibility of him having a sleep disorder. His current complaints are snoring, frequent night awakenings and restless legs. He state he snores off/on at night. He feels he has some restless legs at night. He states his is a very light sleeper and feels his movement in bed bothers her more at night than his snoring. They will often end up in separate rooms at night. He has seen his primary provider about the leg movements and was referred for evaluation. - Parasomnia Symptoms Ever been unable to move upon waking from sleep: No Walks in sleep: No Talks in sleep: No Ever acted out dreams in sleep: No Ever felt weak in the knees when startled or emotional: Yes ("high flight or fig ht response", has not fallen to ground) Bothered by creepy, crawly, restless sensations in legs: Yes (nearly every night; sometimes does not notice it but does) Problems with memory or concentration: No Subjective Initial [place] Sleepiness Scale score: 13 (11/07/22) Past Medical History Past Medical History: reports: Hypertension, Claustrophobia, Gout, Anxiety, Other (high cholesterol) Social History 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 Patient is and lives in [place]. Have you smoked in the past 12 months: No Alcohol use: Yes Alcohol amount and frequency: 3-5 3-4 X PER WEEK Caffeine use: Yes Caffeine amount and frequency: 2-3 cups coffee a week Family History Family history of sleep disordered breathing: No Allergies and Home Medications Known drug allergies: No Drug allergies reviewed: Yes (NKDA) Home medication list reviewed: Yes Allergy and home medication list: Medications: Allopurinol Rosuvastatin Review of Systems Weight loss over past 5 years: 10 Cardiovascular: reports: high blood pressure Gastrointestinal: denies: heartburn Neurological: denies: headaches Psychiatric: reports: anxiety. denies: depression Ear/Nose/Throat: reports: injury to nose, tonsillectomy, wisdom teeth removed Musculoskeletal: reports: back pain, muscle pain or cramping Physical Exam Vital signs obtained and entered by: KAYDEN Heller MA Blood Pressure: 128/82 (LEFT ARM) Cuff size: regular Heart Rate: 52 O2 Saturation: 98 Height: 6 ft 2.5 in Weight: 239 lb 9.6 oz (with clothes and boots on) Body Mass Index: 30.3 BMI Classification: Obese Neck circumference: 17 Mouth and throat: narrow oropharynx Soft palate: long Hard palate: normal Uvula: normal Uvula visualization: 50% Mallampati Class II Tongue: normal in size Tonsils: small Neck: normal w/o lymphadenopathy or thyromegaly Heart: regular rate and rhythm Lungs: clear bilaterally Impression and Plan 1. Suspected Obstructive Sleep Apnea-Hypopnea Syndrome, as suggested by a history of loud and irregular snoring, frequent awakening during the night, and excessive daytime sleepiness. Narrow oropharynx and obesity are common predisposing factors for obstructive sleep apnea-hypopnea syndrome. I recommend proceeding to polysomnography to confirm the diagnosis and to assess severity. If the patient has significant sleep disordered breathing, a manual CPAP titration study will also be performed to find the optimal treatment pressure. I informed the patient of what the sleep studies involve and after some discussion, obtained agreement to proceed. The pathophysiology of obstructive sleep apnea-hypopnea syndrome was discussed with the patient and health risks of cardiovascular and cerebrovascular disease if not treated. Risks of drowsy driving discussed in detail and patient advised to avoid long distance driving and to pullman clerk at the first sign of drowsiness. Patient agreed to plan. * Schedule polysomnography * Avoid long distance driving or driving when feeling sleepy. * Avoid alcohol, sedative and muscle relaxant around bedtime. * Attempt to lose weight. * Review instructions provided by trained office staff on how to prepare for the sleep study. * Return for follow-up after sleep study completed. Counseling Topics: Weight loss health impact Visit Type: In Office Time Spent with Patient (minutes): 30 Provider Statement: I spent 100% of the Face to Face Visit with the patient with greater than 50% spent counseling the patient and coordination of care.
== END 2022-11-07 09:45 | disposition home or self-care (01) ==
LOC: SC 09:44
PROVIDERS: ATTEND Nurse Practitioner Family
DX: G47.10 Hypersomnia, unspecified (principal); R06.83 Snoring; G47.8 Other sleep disorders; E66.9 Obesity, unspecified; I10 Essential (primary) hypertension; Z68.30 Body mass index [BMI] 30.0-30.9, adult
CPT/HCPCS: 99203; 99212

== ENCOUNTER 2022-12-19 20:49 | Outpatient (CLI) | payer OTHER | END 2022-12-19 20:50 | disposition home or self-care (01) | LOC: SC 20:49 | PROVIDERS: ATTEND Nurse Practitioner Family | DX: G47.33 Obstructive sleep apnea (adult) (pediatric) (principal); G47.61 Periodic limb movement disorder | CPT/HCPCS: 95810 ==

== ENCOUNTER 2023-01-10 09:35 | Outpatient (CLI) | payer OTHER ==
--- NOTE | 2023-01-10 09:16 | SLEEP CARE CONSULTATION ---
Information from patient questionnaire entered by María Juarez. I have reviewed and concur with the information entered by María Juarez. This document represents the service I personally performed and the decisions made by , Елена Philippe ARNP. History of Present Illness Service Date and Time: 01/10/2023 0900 Initial [place] Sleepiness Scale score: 13 (11/07/22) Current [place] Sleepiness Scale score: 5 (01/10/23) Additional HPI information: JACINTO POWELL returns via video telehealth visit for follow up and results of the recently performed polysomnography. I explained the pathophysiology behind obstructive sleep apnea. We then spent quite a bit of time discussing different treatment options. For mild obstructive sleep apnea, surgery and oral appliance are alternatives to nasal CPAP therapy but in moderate or severe cases, nasal CPAP is the most effective and reliable treatment. Because apnea is primarily in supine position, then positional management therapy could be effective. Methods discussed such as positioning with pillows, using a T-shirt with tennis balls in the back, or commercial products that have a pillow format on back to prevent supine sleep. I reviewed the impact of weight changes on sleep apnea and strongly recommended losing weight. After some discussion, the patient opted to go with the nasal CPAP therapy. Nasal autoCPAP set at 4-15 cmH20 will be ordered with rationale explained. A manual titration study will be ordered if unable to find optimal pressure with office adjustments. I explained how CPAP machine works and what to expect when using the machine. Using CPAP every night in order to get used to it was emphasized. Patient advised to put CPAP mask on before getting into bed so as not to fall asleep without CPAP. To assist acclimation to CPAP use, it could also be used for a short time during day while reading or watching TV. The patient was instructed to call the CPAP supplier to discuss any mechanical problem that may occur. If the mask given is uncomfortable or is difficult to keep on through the night even with adjustment, contact the CPAP supplier as many will replace with another mask style if notified before 30 days. If snoring or perceives is not getting enough air or too much air from the machine, notify this office. Patient was cautioned about risks of drowsy driving until sleepiness symptoms resolve. Sleep Study - Results Type of Sleep Study: Polysomnography (COMPLETED 12/19/22) Prior sleep studies: No Polysomnography/Home Sleep Study results: IMPRESSION: The quality of the study is good. The patient had minimally reduced sleep efficiency. The sleep architecture was abnormal for sleep fragmentation and reduced amount of time spent in slow wave sleep (N3). Respiratory monitoring showed moderate obstructive sleep apnea-hypopnea (AHI = 17.3) associated with frequent arousals, oxyhemoglobin desaturation and mild hypoxia (rod oxygen saturation of 83%). The respiratory events occurred mainly during supine sleep (supine AHI = 76.1; non-supine = 7.25). Snore was moderate to loud in intensity. There was moderate periodic leg movement of sleep contributing to the sleep fragmentation. Cardiac rhythm was normal sinus rhythm without significant arrhythmia. No abnormal behavior (parasomnia) observed during the night Allergies and Home Medications Known drug allergies: No Drug allergies reviewed: Yes Home medication list reviewed: Yes (no changes) Allergy and home medication list: Allergies No Known Drug Allergies Allergy Review of Systems Review of systems same as previous: Yes (no changes) Physical Exam Vital signs obtained and entered by: MARÍA Heller MA Height: 6 ft 3 in (PER PT) Weight: 235 lb (PER PT) Body Mass Index: 29.3 BMI Classification: Overweight Impression and Plan 1. Obstructive Sleep Apnea-Hypopnea Syndrome, moderate, with lowest oxygen saturation of 83%. Obviously this is the cause of the patients symptoms of unrefreshed sleep, and excessive daytime sleepiness. Positive pressure therapy could benefit hypertension and anxiety. As mentioned above, the patient will be started on nasal autoCPAP therapy with pressure set at 4-15 cmH2O. Compliance guidelines also reviewed. A copy of compliance guidelines will be given for reference at check out. Because the apnea is more severe supine, I instructed to avoid sleeping supine using pillow positioning until able to start CPAP use. 2. Hypoxemia, mild, with a rod oxygen saturation of 83% and 4.9 minutes spent under 90%. His baseline oxygen saturation was normal with an average oxygen saturation of 94%. 3. Periodic limb movement, moderate, that did not fragment patients sleep. Periodic limb movement of sleep (PLMS) is characterized by episodes of repetitive limb movements that occur during sleep and usually involve the lower limbs. The etiology is unknown. Caffeine can also aggravate PLMS and should be avoided. Sleep hygiene methods can also improve sleep as well as lifestyle changes such as regular exercise. Patient was advised that no treatment is n eeded at this time. If symptoms increase, then further evaluation is indicated. * Nasal auto CPAP therapy, pressure at 4-15 cm H2O. * Attempt to lose weight. * Avoid alcohol consumption near bedtime. * Avoid supine sleep until using CPAP. * The patient is again cautioned about driving until sleepiness completely resolves. * Return one month after CPAP obtained. I will assess response to therapy and compliance at that time. Counseling Topics: Sleeping position, Weight loss health impact Visit Type: Telehealth Video Video Type: Padma Patient Location: Home Location of Provider: Office Patient agrees and consents to this telehealth visit type: Yes Patient agrees to have their insurance billed: Yes Time Spent with Patient (minutes): 21 Provider Statement: I spent 100% of the Telehealth Video Call with the patient with greater than 50% spent counseling the patient and coordination of care.
== END 2023-01-10 09:36 | disposition home or self-care (01) ==
LOC: SC 09:35
PROVIDERS: ATTEND Nurse Practitioner Family
DX: G47.33 Obstructive sleep apnea (adult) (pediatric) (principal); G47.61 Periodic limb movement disorder; E66.3 Overweight; Z68.29 Body mass index [BMI] 29.0-29.9, adult